=== PATIENT | female | born 1945 | race Caucasian/White ===

== ENCOUNTER 2018-05-27 16:13 | Emergency (ER) | payer OTHER ==
[~2018-05-27 16:13] MED LIST: CARVEDILOL PO; Z.0.DEXILANT60 MG PO; Z.0.LEVOTHYROXINE50 PO
== END 2018-05-27 16:27 | disposition short-term general hospital (02) ==
LOC: ER 16:13
DX: R03.0 Elevated blood-pressure reading, without diagnosis of hypertension (principal); R11.0 Nausea; Z53.21 Procedure and treatment not carried out due to patient leaving prior to being seen by health care provider